=== PATIENT | male | born 1950 | race African-American/Black ===

== ENCOUNTER → 2020-07-10 | Outpatient (CLI) | payer MEDICARE ==
[~2020-07-10] MED LIST: ALBUTEROL2.5 MG/3 M INH; ASPIRIN CHEWABL81 MG PO; ATORVASTATIN CA20 MG PO; CARDIZEM 90MG T90 MG PO; CLONIDINE HCL0.3 MG PO; CLOPIDOGREL75 MG PO; COZAAR 25MG TAB25 MG PO; KLONOPIN TAB 00.5 MG PO; LOSARTAN POTAS100 MG PO; MEN'S 50 PLUS1 EACH PO; METOPROLOL TAR100 MG PO; NOVOLIN 70100 UNIT/1 SC; OMEPRAZOLE20 MG PO; PROZAC 20 MG CA20 MG PO; SYMBICORT 16010.2 GM INH; VITAMIN D21250 MCG PO; ZOLOFT100 MG PO; [UNRECOGNIZED DRUG - REMARK] PO
[2020-07-10 10:15] LABS: HEMOGLOBIN 15.2 gm/dl (14.0-17.5); RED BLOOD COUNT 5.14 M/UL (4.20-5.50); WHITE BLOOD COUNT 12.8 K/UL (4.5-11.0)
== END ==
LOC: LAB 09:45
PROVIDERS: Internal Medicine Nephrology
DX: R80.9 Proteinuria, unspecified (principal)
CPT/HCPCS: 36415; 85027; 85610; 85730

== ENCOUNTER → 2020-07-12 | Outpatient (CLI) | payer MEDICARE | LOC: CT 06:26 | DX: I12.9 Hypertensive chronic kidney disease with stage 1 through stage 4 chronic kidney disease, or unspecified chronic kidney disease (principal); E11.22 Type 2 diabetes mellitus with diabetic chronic kidney disease; N18.2 Chronic kidney disease, stage 2 (mild); E11.42 Type 2 diabetes mellitus with diabetic polyneuropathy; E11.65 Type 2 diabetes mellitus with hyperglycemia; E83.52 Hypercalcemia; M51.36 Other intervertebral disc degeneration, lumbar region; E78.5 Hyperlipidemia, unspecified; Z86.73 Personal history of transient ischemic attack (TIA), and cerebral infarction without residual deficits; Z87.891 Personal history of nicotine dependence; Z88.6 Allergy status to analgesic agent; Z88.8 Allergy status to other drugs, medicaments and biological substances; Z79.02 Long term (current) use of antithrombotics/antiplatelets; Z79.4 Long term (current) use of insulin; Z79.899 Other long term (current) drug therapy | CPT/HCPCS: 77012; 88305; 88313; 88346; 88348 ==